=== PATIENT | female | born 2000 | race Caucasian/White ===

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

== ENCOUNTER → 2021-04-25 | Outpatient (REF) | payer BC ==
[~2021-04-25] MED LIST changes: +VITATAB PO
== END ==
LOC: M LAB REF 21:00
PROVIDERS: ATTEND Physician Assistant
DX: R50.9 Fever, unspecified (principal)

== ENCOUNTER → 2022-03-05 | Outpatient (CLI) | payer BC | LOC: M WHC 12:49 | PROVIDERS: ATTEND Physician Assistant | DX: N94.6 Dysmenorrhea, unspecified (principal) ==

== ENCOUNTER → 2023-01-17 | Outpatient (CLI) | payer BC ==
[~2023-01-17] MED LIST changes: -MICR1TAB16; +NORE1TAB86
[2023-01-17 12:34] LABS: HCG, SERUM QUANTITATIVE 93.5 MIU/ML (<4.2)
[2023-01-17 12:44] LABS: HCG, SERUM QUALITATIVE POSITIVE (NEGATIVE)
== END ==
LOC: M LAB 10:48
PROVIDERS: ATTEND Physician Assistant Medical
DX: N91.2 Amenorrhea, unspecified (principal)

== ENCOUNTER → 2023-02-11 | Outpatient (CLI) | payer BC ==
[2023-02-11 16:17] LABS: HCG, SERUM QUANTITATIVE < 2.6 MIU/ML (<4.2)
[2023-02-11 16:20] LABS: THYROID STIMULATING HORMONE 1.652 uIU/ML (0.55-4.78)
[2023-02-11 16:21] LABS: FREE T4 1.06 NG/DL (0.89-1.76)
== END ==
LOC: M PLALAB 14:04
PROVIDERS: ATTEND Advanced Practice Midwife
DX: Z01.419 Encounter for gynecological examination (general) (routine) without abnormal findings (principal)

== ENCOUNTER → 2023-03-05 | Outpatient (CLI) | payer BC | LOC: M WHC 13:55 | PROVIDERS: ATTEND Advanced Practice Midwife | DX: R10.2 Pelvic and perineal pain (principal) ==

== ENCOUNTER → 2025-06-27 | Outpatient (CLI) | payer BC ==
[~2025-06-27] MED LIST changes: +NORE-30; -NORE1TAB86
[2025-06-27 17:42] LABS: HCG, SERUM QUALITATIVE POSITIVE (NEGATIVE)
[2025-06-28 09:16] LABS: HCG, SERUM QUANTITATIVE 371.5 MIU/ML (<4.2)
== END ==
LOC: M LAB 16:26
PROVIDERS: ATTEND Physician Assistant
DX: N91.1 Secondary amenorrhea (principal); O03.9 Complete or unspecified spontaneous abortion without complication

== ENCOUNTER → 2025-07-12 | Outpatient (CLI) | payer BC | LOC: M PLALAB 12:07 | PROVIDERS: ATTEND Physician Assistant | DX: Z87.59 Personal history of other complications of pregnancy, childbirth and the puerperium (principal) ==

== ENCOUNTER → 2025-07-18 | Outpatient (CLI) | payer BC | LOC: M PLALAB 13:27 | PROVIDERS: ATTEND Specialist | DX: N92.6 Irregular menstruation, unspecified (principal); N96 Recurrent pregnancy loss ==

== ENCOUNTER → 2025-08-05 | Outpatient (REF) | payer BC | LOC: M SFHCWAGY 16:51 | PROVIDERS: ATTEND Advanced Practice Midwife | DX: Z12.4 Encounter for screening for malignant neoplasm of cervix (principal) ==